=== PATIENT | male | born 1960 | race Caucasian/White ===

== ENCOUNTER 2019-10-27 10:00 | Outpatient (CLI) | payer MEDICARE, MEDICAID ==
[2019-10-27 17:27] LABS: ALT (SGPT) 10 U/L (8-55); AST (SGOT) 17 U/L (5-34); Albumin 3.7 g/dL (3.5-5.0); Alkaline Phosphatase 91 U/L (40-110); Anion Gap 12 mmol/L (10-20); BUN (Urea Nitrogen) 6 mg/dL (8.4-25.7); Bilirubin, Total 0.7 mg/dL (0.2-1.2); Calc. Creatinine Clearance 0 mL/min (70-130); Calcium 9.1 mg/dL (7.8-10.44); Carbon Dioxide 26 mmol/L (22-29); Chloride 100 mmol/L (98-107); Estimated GFR-MDRD 76; Globulin 3.5 g/dL (2.4-3.5); Glucose 105 mg/dL (70-105); Potassium 3.3 mmol/L (3.5-5.1); Protein, Total 7.2 g/dL (6.0-8.3); Sodium 135 mmol/L (136-145)
[2019-10-27 18:49] LABS: Anisocytosis SLIGHT = 6-15 cells (100X) (0-5/hpf); Auer Rods SLIGHT; Band 13 % (5-11); Eosinophils 3 % (0-10); Lymphocytes 20 % (21-51); MDiff Complete? YES; Mean Corpuscular HGB CONC 29.5 g/dL (32.0-36.0); Mean Corpuscular Hemoglobin 25.4 pg (27.0-31.0); Mean Platelet Volume 6.8 fL (7.4-10.4); Monocytes 6 % (0-10); Neutrophil 58 % (42-75); Ovalocytes SLIGHT = 2-5 cells (100X) (0-1/hpf); Platelet Count 146 thou/uL (130-400); Platelet Morphology Comment Appears Adequate; Poikilocytosis SLIGHT = 6-15 cells (100X) (0-5/hpf); RBC Distribution Width 19.7 % (11.5-14.5); Red Blood Cell (RBC) Count 4.74 mill/uL (4.70-6.10); White Blood Cell (WBC) Count 7.4 thou/uL (4.8-10.8)
== END 2019-10-27 10:01 | disposition home or self-care (01) ==
LOC: MADLAB 10:00
PROVIDERS: ATTEND Internal Medicine Gastroenterology
DX: K70.31 Alcoholic cirrhosis of liver with ascites (principal); I85.00 Esophageal varices without bleeding; D50.9 Iron deficiency anemia, unspecified
CPT/HCPCS: 36415; 80053; 82105; 85025

== ENCOUNTER 2019-11-02 07:28 | Outpatient (CLI) | payer MEDICARE, MEDICAID ==
--- NOTE | 2019-11-02 09:17 | ULT ---
ULTRASOUND ABDOMEN LIMITED: (RIGHT UPPER QUADRANT) 11/02/2019 HISTORY: A 59-year-old male with alcoholic cirrhosis and ascites. FINDINGS: Currently no free fluid is visualized in the right upper quadrant. The liver has a coarse echotexture and lobular margins. The right lobe of the liver is small. Gallbladder wall thickness is 2 or 3 mm. No definite gallstone identified. No pericholecystic fluid. Common duct caliber is 3 mm. No hydronephrosis of the right kidney. Nonspecific sonographic appearance of the pancreas. IMPRESSION: 1. Hepatic cirrhosis. 2. No ascites visualized in the right upper quadrant. BIRGIT Villalobos POS: [facility]
== END 2019-11-02 07:29 | disposition home or self-care (01) ==
LOC: MADULT 07:28
PROVIDERS: ATTEND Internal Medicine Gastroenterology
DX: D50.9 Iron deficiency anemia, unspecified (principal); K70.31 Alcoholic cirrhosis of liver with ascites; I85.00 Esophageal varices without bleeding
CPT/HCPCS: 76705

== ENCOUNTER 2020-05-05 08:25 | Outpatient (CLI) | payer MEDICARE, MEDICAID ==
[2020-05-05 08:58] LABS: #Basophils 0.1 thou/uL (0.0-0.2); #Eosinphils 0.1 thou/uL (0.0-0.7); #Lymphocytes 1.3 thou/uL (1.20-3.40); #Monocytes 0.4 thou/uL (0.11-0.59); #Neutrophils 2.5 thou/uL (1.40-6.50); %Basophils 1.6 % (0.0-1.0); %Lymphocytes 30.4 % (21.0-51.0); %Monocytes 8.2 % (0.0-10.0); %Neutrophils 56.8 % (42.0-75.0); Mean Corpuscular HGB CONC 31.4 g/dL (32.0-36.0); Mean Corpuscular Hemoglobin 27.2 pg (27.0-31.0); Mean Corpuscular Volume 86.6 fL (78.0-98.0); Mean Platelet Volume 7.6 fL (7.4-10.4); Platelet Count 145 thou/uL (130-400); White Blood Cell (WBC) Count 4.3 thou/uL (4.8-10.8)
[2020-05-05 09:09] LABS: ALT (SGPT) 11 U/L (8-55); AST (SGOT) 18 U/L (5-34); Albumin 3.4 g/dL (3.4-4.8); Alkaline Phosphatase 65 U/L (40-110); Anion Gap 12 mmol/L (10-20); BUN (Urea Nitrogen) 5 mg/dL (8.4-25.7); Bilirubin, Total 0.8 mg/dL (0.2-1.2); Calc. Creatinine Clearance 0 mL/min (70-130); Calcium 8.7 mg/dL (7.8-10.44); Carbon Dioxide 28 mmol/L (23-31); Chloride 99 mmol/L (98-107); Estimated GFR-MDRD 84; Globulin 3.5 g/dL (2.4-3.5); Glucose 197 mg/dL (80-115); Protein, Total 6.9 g/dL (5.8-8.1); Sodium 136 mmol/L (136-145)
--- NOTE | 2020-05-05 09:17 | ULT ---
Sonogram right upper quadrant HISTORY: Right upper quadrant pain. Cirrhosis. FINDINGS: Gallbladder shows no focal stone or abnormality. Common duct is 0.4 cm. Liver is very heterogeneous with a somewhat nodular contour. Partially hyperechoic. No focal mass or intrahepatic biliary dilatation. No free fluid. IMPRESSION : Cirrhotic appearance of the liver with component of hepato-steatosis. No evidence of gallstones or biliary obstruction.
[2020-05-05 09:29] LABS: Potassium 2.9 mmol/L (3.5-5.1)
== END 2020-05-05 08:26 | disposition home or self-care (01) ==
LOC: MADULT 08:25
PROVIDERS: ATTEND Internal Medicine Gastroenterology
DX: K70.31 Alcoholic cirrhosis of liver with ascites (principal); I85.00 Esophageal varices without bleeding; D50.9 Iron deficiency anemia, unspecified; K76.0 Fatty (change of) liver, not elsewhere classified; Z86.010 Personal history of colon polyps
CPT/HCPCS: 36415; 76705; 80053; 82105; 85025

== ENCOUNTER 2020-11-01 07:15 | Outpatient (CLI) | payer MEDICARE, MEDICAID ==
--- NOTE | 2020-11-01 08:05 | ULT ---
RIGHT UPPER QUADRANT ABDOMINAL ULTRASOUND: COMPARISON: Gallbladder ultrasound 05/05/2020 and MRI abdomen 10/09/2017. HISTORY: History of cirrhosis. Right upper quadrant abdominal pain. TECHNIQUE: Multiplanar, watson scale, and color Doppler images were obtained in a right upper quadrant abdominal u ltrasound. FINDINGS: The liver nodular in appearance and echogenic consistent with cirrhosis. No focal liver lesions are seen. The gallbladder is normal without stones, sludge, gallbladder wall thickening, or pericholecystic flu id. There was tenderness over the gallbladder during the examination. The common bile duct is normal measuring 4 mm. The pancreas was not well visualized. The right kidney is difficult to visualize but does not demons trate hydronephrosis or calculus and measures approximately 8.8 cm in length. IMPRESSION: Cirrhotic liver. POS: [facility]
== END 2020-11-01 07:16 | disposition home or self-care (01) ==
LOC: MADULT 07:15
PROVIDERS: ATTEND Internal Medicine Gastroenterology
DX: K74.60 Unspecified cirrhosis of liver (principal); R18.8 Other ascites; I85.00 Esophageal varices without bleeding
CPT/HCPCS: 76705